=== PATIENT | male | born 1995 | race Two or more races ===

== ENCOUNTER 2021-10-29 21:23 | Emergency (ER) | payer SELFPAY ==
[~2021-10-29] VITALS: Ht 170.2 cm; Wt 79.4 kg
--- NOTE | 2021-10-29 21:50 | NUR ---
BIBRA 89 FROM HALFWAY/ PT STATED HE WAS HAVING A SEIZURE. 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 PT A/OX4. TOLERATING R/A WELL WITH NO SOB. CONNECTED PT TO POX AND MONITOR. SAFETY MEASURES AT PLACE
[2021-10-29] MEDS ORDERED: LEVETIRACETAM (250 MG) 250 MG TABLET PO ONE ×2 (22:00)
--- NOTE | 2021-10-29 22:20 | NUR ---
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
--- NOTE | 2021-10-29 23:29 | NUR ---
Patient discharged to [facility] in stable condition. Written and verbal after care instructions given. Patient verbalizes understanding of instruction. PT ambulatory with a steady gait.
[2021-10-29 23:30] VITALS: BP 121/78
== END 2021-10-29 23:31 ==
LOC: ER 21:34
DX: Z60.2 Problems related to living alone
CPT/HCPCS: 71045-TC